=== PATIENT | female | born 1985 | race Caucasian/White ===

== ENCOUNTER 2024-10-15 06:11 | Day surgery (SDC) | payer OTHER, SELFPAY ==
[2024-09-29 09:22] LABS: % Basophils 0.7 % (0-2); % Eosinophils 2.1 % (0-6); % Immature Granulocytes 0.8 % (0-0.5); % Lymphocytes 32.5 % (20.5-51.1); % Monocytes 7.3 % (1.7-9.3); % Neutrophils 56.6 % (42.2-75.2); Absolute Basophils 0.1 10^3/uL (0-0.2); Absolute Eosinophils 0.3 10^3/uL (0-0.7); Absolute Immature Granulocytes 0.1 10^3/uL (0-0.05); Absolute Lymphocytes 4.4 10^3/uL (1.2-3.4); Absolute Neutrophils 7.7 10^3/uL (1.4-6.5); Hematocrit 41.8 % (37.0-47.0); Hemoglobin 14.2 g/dL (12.0-16.0); Mean Corpuscular Hgb 30.7 pg (27.0-31.0); Mean Corpuscular Volume 90.5 fL (81.0-99.0); Mean Platelet Volume 10.5 fL (7.4-10.4); Nucleated Red Blood Cells % 0 %; Platelet Count 290 10^3/uL (130-400); Red Blood Cell Count 4.62 10^6/uL (4.20-5.40); Red Cell Dist. Width 12.6 % (11.5-14.5); White Blood Cell Count 13.6 10^3/uL (4.8-10.8)
[2024-09-29 09:45] LABS: ALT (SGPT) 17 U/L (0-35); AST (SGOT) 19 U/L (14-36); Albumin 4.1 g/dl (3.5-5.0); Alkaline Phosphatase 57 U/L (38-126); Blood Urea Nitrogen 14 mg/dl (7-17); Calcium 8.8 mg/dl (8.4-10.2); Carbon Dioxide 27 mmol/L (22-30); Chloride 100 mmol/L (98-107); Glucose 89 mg/dl (70-99); Potassium 4.1 mmol/L (3.5-5.1); Sodium 137 mmol/L (135-145); Total Bilirubin 0.5 mg/dl (0.2-1.3); Total Protein 6.9 g/dl (6.3-8.2); eGFR > 60.00
[2024-10-15 08:15] VITALS: BMI 41.6
[2024-10-15 08:24] VITALS: BMI 41.6
[2024-10-15 08:31] VITALS: BP 134/77
[2024-10-15] MEDS: NORMOSOL-R/PLASMALYTE-A 1000 IV (08:46)
[2024-10-15 11:00] VITALS: BP 116/55; BP 134/77
[2024-10-15 11:15] VITALS: BP 114/61
[2024-10-15 11:23] VITALS: BP 120/59
[2024-10-15 11:50] VITALS: BP 117/56
[2024-10-15] MEDS: TYLENOL 650 MG PO (12:15)
[2024-10-15 12:20] VITALS: BP 127/67
[2024-10-15] MEDS: ROXICODONE 5 MG PO (12:50)
== END 2024-10-15 12:55 | disposition home or self-care (01) ==
LOC: SDS 06:11
PROVIDERS: ATTENDING PHYSICIAN Otolaryngology; FAMILY PHYSICIAN Family Medicine
DX: J32.2 Chronic ethmoidal sinusitis (principal); J33.9 Nasal polyp, unspecified; J31.0 Chronic rhinitis; J34.3 Hypertrophy of nasal turbinates; J34.2 Deviated nasal septum
CPT/HCPCS: 30140; 31237; 88304; 36415; 80053; 85025; 93005